=== PATIENT | male | born 1975 | race African-American/Black ===

== ENCOUNTER 2017-10-08 16:11 | Emergency (ER) | payer MEDICAID, SELFPAY ==
[2017-10-08 16:12] VITALS: BP 143/99; PULSE 94; RESP 16; TEMP 36.4; O2SAT 97; BMI 24.4
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
--- NOTE | 2017-10-08 16:25 | RAD_ITS ---
STUDY: X-RAY - UNILATERAL RIBS ( LEFT ) WITH CHEST REASON FOR EXAM: Male, 42 years old. Posterior left back pain after fall last evening. TECHNIQUE - RIBS: Four view(s) of the ribs. TECHNIQUE - CHEST: Single PA view of the chest. COMPARISON: Prior comparison studies are not available for review at this time. FINDINGS - RIBS: There is a lucency within the posterior left-sided seventh rib that may represent undisplaced fracture. There may also be undisplaced fracture of the posterior left ninth rib. FINDINGS - CHEST: The lungs are clear and expanded. There is no demonstrated pleural abnormality. Normal size heart. Normal mediastinum and oz. There is prominence of the pulmonary hilar arteries without peripheral pulmonary vascular congestion. Normal visualized aortic arch and descending thoracic aorta. Normal visualized thoracic spine. Normal visualized ribs, clavicles, and shoulders. There is no demonstrated abnormality of the visualized soft tissue structures of the upper abdomen. RAD/Ribs Uni Min 3V w/PA Chest IMPRESSION: RIBS: Questionable undisplaced fractures of the posterior left-sided ribs versus overlapping shadows. If there is still clinical concern for acute fracture, follow-up bone scan maybe helpful in evaluating a healing radiographically occult fracture. CHEST: No radiographic evidence of acute cardiopulmonary disease. Electronically Signed: Katrina Kellogg MD at 16:57 EDT , Service support ,
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
[2017-10-08] MEDS: Lidocaine 5% Patch 1 PATCH TOPICAL (16:43)
[2017-10-08 17:06] VITALS: RESP 16
== END 2017-10-08 17:07 | disposition home or self-care (01) ==
PROVIDERS: Emergency Provider Emergency Medicine
DX: S20.212A Contusion of left front wall of thorax, initial encounter (principal); W19.XXXA Unspecified fall, initial encounter; Y93.9 Activity, unspecified; Y92.9 Unspecified place or not applicable; Y99.9 Unspecified external cause status; Z72.0 Tobacco use
CPT/HCPCS: 71101; 99282

== ENCOUNTER 2017-11-19 23:43 | Emergency (ER) | payer MEDICAID, SELFPAY ==
[2017-11-19 23:44] VITALS: BP 152/109; PULSE 101; RESP 16; TEMP 36.6; O2SAT 98; BMI 23.7
[2017-11-19 23:53] VITALS: BP 157/105; PULSE 96; RESP 16; O2SAT 100
--- NOTE | 2017-11-20 00:10 | RAD_ITS ---
STUDY: X-RAY - RIGHT SHOULDER REASON FOR EXAM: Male, 42 years old. Pain TECHNIQUE: 3 view(s) of the shoulder. COMPARISON: None. FINDINGS: Normal glenohumeral articulation. Normal acromioclavicular joint. Normal acromion. Normal humeral head and visualized proximal humerus. The soft tissue structures are unremarkable. Normal visualized pulmonary apex. RAD/Shoulder min 2 Views IMPRESSION: Normal x-ray examination of the shoulder. Electronically Signed: Julio Walters MD at 0:32 EDT , Service support ,
--- NOTE | 2017-11-20 00:41 | ED.VISSUMM ---
- ER Visit Summary Date of Service: 11/20/17 Chief Complaint: Right shoulder pain History of Present Illness: The patient is a 42 M who 3 days ago while carrying laundry down the steps tripped and fell onto his right shoulder. He complains of worsening pain since that time. His pain is aching and throbbing in nature. He did try Tylenol at home without relief. He is able to go through active full range of motion denies any paresthesias weakness or loss of function. He denies any other injuries. Physical Examination: Afebrile vitals are unremarkable Patient has active full range of motion of the right shoulder but he has diffuse tenderness over the shoulder as well as the distal clavicle there is no deformity he has active full range of motion of the elbow wrist and hand without pain normal distal sensation to light touch brisk capillary refill easily palpable radial pulse Test Results: X-rays of the shoulder including a full view of the clavicle are normal. Emergency Department Course and Treatment: Patient was given a prescription for naproxen. He was advised on supportive care including rest ice and elevation. He was discharged. Treatment Plan: [] Disposition: Discharge Impression: Right shoulder contusion This note was generated with [employer] dictation software. It may contain incorrect words, spelling, and punctuation that were not noted in review of the chart prior to signing ED Disposition - Plan for ED Patient: Chief Complaint: Upper Extremity Injury Referrals: Care Physician,No Primary [Primary Care Provider] -
--- NOTE | 2017-11-20 00:44 | ED.DEP ---
ED Disposition - Plan for ED Patient: Chief Complaint: Upper Extremity Injury Instructions: ED Contusion Shoulder Prescriptions: Naproxen [Naprosyn] 500 mg PO BID #20 tab Referrals: Care Physician,No Primary [Primary Care Provider] -
[2017-11-20 00:51] VITALS: BP 160/105; PULSE 98; RESP 16; O2SAT 100
== END 2017-11-20 00:51 | disposition home or self-care (01) ==
LOC: ED 11-20 00:07
PROVIDERS: Emergency Provider Emergency Medicine
DX: S40.011A Contusion of right shoulder, initial encounter (principal); W10.9XXA Fall (on) (from) unspecified stairs and steps, initial encounter; Y93.9 Activity, unspecified; Y92.9 Unspecified place or not applicable; Y99.9 Unspecified external cause status
CPT/HCPCS: 73030; 99282

== ENCOUNTER 2024-09-12 08:37 | Emergency (ER) | payer BC, SELFPAY ==
[2024-09-12 08:38] VITALS: BP 109/91; PULSE 109; RESP 20; TEMP 37.2; O2SAT 97; BMI 25.9
[2024-09-12 08:54] VITALS: O2SAT 99
--- NOTE | 2024-09-12 08:57 | EDS_ITS ---
HPI History of Present Illness Chief Complaint: Cough Informant: patient Narrative Narrative: 49-year-old male presenting to the emergency room out of concerns for influenza. Daughter was recently seen by this physician and diagnosed with influenza A. He states that on evening he began to feel ill. He got sent home from work on Saturday. He has been experiencing diarrhea headache myalgias cough rhinorrhea decreased appetite. He was supposed to work today but cannot. PFSH PFSH Medical History no medical history Home Medications ?Medication ?Instructions ?Recorded ?Last Taken ?Type NK 09/12/24 Unknown History Allergy/AdvReac Type Severity Reaction Status Date / Time amoxicillin Allergy Anaphylaxis Verified 09/12/24 08:38 Surgical History no surgical history Social History Smoking Status: Unknown if ever smoked ROS ROS ED Constitutional Constitutional ED: Reports chills, fever(s) and sweats; Denies weight loss Eyes Eyes: Denies change in vision or diplopia ENT ENT ED: Reports rhinorrhea; Denies ear pain or sore throat Cardiovascular Cardiovascular: Denies chest pain, orthopnea, palpitations or racing heartbeat Respiratory/Chest Respiratory/Chest: Reports cough; Denies dyspnea or orthopnea Gastrointestinal Gastrointestinal: Reports diarrhea and nausea; Denies abdominal pain Genitourinary Genitourinary ED: Denies dysuria, hematuria or urinary frequency Musculoskeletal Musculoskeletal: Reports back pain and myalgias; Denies arthralgias Integumentary Denies abscess or rash Neurologic Neurologic: Reports headache(s); Denies weakness Psychiatric Psychiatric: Denies anxiety, depression, suicidal ideation or suicidal thoughts Endocrine Endocrinology: Denies polydipsia, polyphagia or polyuria Allergic/Immunologic Allergic/Immunologic ED: Denies mouth swelling, tongue swelling or urticaria EXAM Physical Exam Const Vital Signs: 09/12/24 08:38 09/12/24 08:54 Temperature 99 F Temperature Source Temporal Pulse Rate 109 H Respiratory Rate 20 H Respiratory Effort Normal Respiratory Depth Normal Respiratory Pattern Normal Blood Pressure 109/91 H Blood Pressure Mean 97 Pulse Ox 97 Oxygen Delivery Method Room Air Room Air Positive well nourished and well developed General Appearance ED: well developed and NAD HEENT Reports normocephalic, head/scalp atraumatic and moist mucous membranes HEENT Narrative: Clear rhinorrhea Eyes PERRL and EOMs intact bilaterally Neck no lymphadenopathy, supple and no JVD Resp normal respiratory effort and clear to auscultation bilaterally Resp Narrative: Forceful cough Cardio regular rate, regular rhythm and no murmurs GI normal to inspection, nondistended, normoactive bowel sounds and non-tender Palpation: soft Back/Spine no CVA tenderness and normal ROM Extremity normal to inspection General Extremety ED: Negative for edema General Extremity: Negative for edema Neuro oriented x3 and CN's II-XII intact bilaterally Sensorium / Orientation: alert Motor Exam: strength 5/5 throughout Psych mental status grossly normal Mood & Affect: Negative for depressed or tearful Skin no rashes or lesions noted and no wounds MDM MDM MDM Narrative Medical decision making narrative: Differential diagnosis includes but not limited to pneumonia bronchitis oral effusion congestive heart failure viral syndrome My independent interpretation of his chest x-ray is no distinct infiltrate. Radiology concurs. He is influenza A positive. He clinically looks well. Would recommend Tylenol Motrin for fever pain continued oral hydration return if worsening or concerns work note will be given History & Record Review Discussion w/independent historian: Patient Radiography Diagnostic Testing: Clinical Impression(s) from Imaging Studies Chest X-Ray 09/12/24 09:10 IMPRESSION: NEGATIVE CHEST. Reading Location: [facility] Discharge Plan Triage Chief Complaint: Cough ED Provider: [facility]ites Dx/Rx/DC Orders Clinical Impression: Influenza A, Cough Instructions: ED Influenza (Adult) Prescriptions: No Action NK Primary Care Provider: Care Physician,No Primary Referrals: Care Physician,No Primary [Primary Care Provider] - Print Language: Danish Disposition Disposition: Home, Self Care Discharge Date/Time: 09/12/24 10:11
[2024-09-12] MEDS: Ibuprofen 400 MG Tablet 800 MG PO (09:01)
--- NOTE | 2024-09-12 09:10 | RAD_ITS ---
PROCEDURE: CHEST 1 VIEW (PORTABLE) REASON FOR EXAM: 49-year-old male, cough. TECHNIQUE: Frontal view of the chest. COMPARISON: Rib and chest radiographs 10/08/2017. FINDINGS: The heart size is normal. The lungs are clear. No focal consolidation, pleural effusion or pneumothorax. The bones are unremarkable. RAD/Chest 1 View (Portable) IMPRESSION: NEGATIVE CHEST. Reading Location: [id number]
== END 2024-09-12 10:11 | disposition home or self-care (01) ==
PROVIDERS: Emergency Provider Emergency Medicine; Visit Provider Emergency Medicine
DX: J10.1 Influenza due to other identified influenza virus with other respiratory manifestations (principal); R19.7 Diarrhea, unspecified; R51.9 Headache, unspecified
CPT/HCPCS: 71045; 87631; 99282